=== PATIENT | male | born 1960 | race American Indian/Alaskan Native ===

== ENCOUNTER 2019-05-19 11:42 | Day surgery (SDC) | payer OTHER ==
[~2019-05-19 11:42] MED LIST: NACL 0.9% 1000 ML 1,000 ML IV SCH
[2019-05-19] MEDS ORDERED: XYLOCAINE MPF 2% ONE (12:00)
--- NOTE | 2019-05-19 12:40 | Anesthesia Day of Surgery ---
Anesthesia Day of Surgery - Day of Surgery Patient Examined: Yes Patient H&P Reviewed: Yes Patient is NPO: Yes
--- NOTE | 2019-05-19 12:40 | Anesthesia Consultation ---
Anesthesia Consult and Med Hx Date of service: 05/19/19 - Airway Anesthetic Teeth Evaluation: Partials ROM Head & Neck: Adequate Mental/Hyoid Distance: Adequate Mallampati Class: Class III Intubation Access Assessment: Possibly Difficult - Pulmonary Exam CTA: Yes - Cardiac Exam Cardiac Exam: RRR - Pre-Operative Health Status ASA Pre-Surgery Classification: ASA1 Proposed Anesthetic Plan: MAC - Pulmonary Hx Smoking: Yes (former smoker quit 30 yrs) Hx Respiratory Symptoms: No - Cardiovascular System Hx Hypertension: No Hx Heart Attack/AMI: No Hx Percutaneous Transluminal Coronary Angioplasty (PTCA): No - Central Nervous System Hx Seizures: No CVA: No - Endocrine Hx Renal Disease: No Hx Cirrhosis: No Hx Insulin Dependent Diabetes: No Hx Non-Insulin Dependent Diabetes: No Hx Thyroid Disease: No - Other Systems Hx Obesity: Yes - Additional Comments Anesthesia Medical History Comments: No hx anesthetic complications.
[2019-05-19] MEDS ORDERED: DIPRIVAN 10 MG/ML IV ONE ×2 (13:36)
--- NOTE | 2019-05-19 14:21 | Operative Report ---
Operative Report Operative Report: Date of procedure: 05/19/2019 Procedure: Colonoscopy with multiple hot biopsy polypectomies and polyp abla tions. Attending physician: Richmond Wade MD [employer] Member: Richmond Wade MD Indication: Patient is a 59-year-old male who presents for screening colonoscopy. A colonoscopy serves to evaluate patient so that treatment may be directed based on the findings. Consent: Informed consent was obtained after advising the patient and family regarding nature of this procedure, its indications, potential benefits as well as possible complications including but not limited to bleeding perforation and adverse reaction to medication, infection as well as other cardiopulmonary complications. An informed written and verbal consent was then obtained after due opportunity was provided for questions and answers. Monitoring: Patient was monitored continuously with pulse oximetry and electrocardiographic recordings as well as blood pressure recordings. Vital signs remained stable throughout this procedure with no untoward events. Preoperative assessment: Patient was assessed immediately prior to this procedure for capacity to tolerate monitored anesthesia care and moderate sedation as well as general anesthesia. Patient's ASA classification is 2, Mallampati class is 2, Hyomental distance is 3. Instrument: Olympus video colonoscope Medications: Propofol given intravenously in divided doses. For details please refer to anesthesia records. Description of procedure: Patient was placed in the left lateral decubitus position after achieving sedation, a digital rectal examination was performed following which the colonoscope was introduced into the anal verge and advanced to the cecum which was identified by the cecal valve, the appendiceal orifice, as well as by the cecal strap and direct transillumination. The colonoscope was subsequently withdrawn with careful inspection of all mucosal surfaces. Patient tolerated this procedure well and was subsequently taken to the recovery room. The following findings were noted. Findings: The preparation was fair. Patient has some scattered liquid stool that was easily irrigated. There were a few scattered diverticula seen in the sigmoid colon. Patient had multiple sigmoid colon polyps that were removed by hot biopsy polypectomy. These were all diminutive. The largest polyp measured approximate 6 mm. Most of them measured between 4 and 5 mm. In the sigmoid colon there were 10 of these polyps that were removed by hot biopsy polypectomy and ablated. There were smaller polyps in the sigmoid colon and in the rectum that we ablated. The rest of the colon was normal. On the retroflexed view at the anal verge, patient had internal hemorrhoids. Impression: Multiple diminutive sigmoid colon polyps status post hot biopsy polypectomy and ablation Rectal polyps status post ablation Mild Diverticular disease of the colon. Prominent Internal hemorrhoids. Plan: Follow the pathology report High-fiber diet. Repeat colonoscopy in 5 years if the polyps are adenomatous.
--- NOTE | 2019-05-19 14:22 | Discharge Summary ---
Short Stay Discharge Plan Activity: advance as tolerated Weight Bearing Status: Weight Bear as Tolerated Diet: regular Additional Instructions: Post Sedation D/C Instructions When you return home you may resume your regular diet unless otherwise directed. Go directly home from the hospital and rest quietly. You may resume normal activities tomorrow. Do NOT drive, return to work, operate any machinery or make any important personal or business decisions today. Do NOT drink any alcohol or take nerve or sleeping drugs. They add to the effects of the medicine still present in your body. Follow up with: GUCCI CARY MD [Primary Care Provider] - 7 Days
[2019-05-19 14:55] VITALS: BP 118/83
== END 2019-05-19 11:43 | disposition home or self-care (01) ==
LOC: GIO 11:42
PROVIDERS: ATTEND Internal Medicine Gastroenterology
DX: Z12.11 Encounter for screening for malignant neoplasm of colon (principal); D12.4 Benign neoplasm of descending colon; K57.30 Diverticulosis of large intestine without perforation or abscess without bleeding; E66.9 Obesity, unspecified; Z91.013 Allergy to seafood; Z91.041 Radiographic dye allergy status; Z68.34 Body mass index [BMI] 34.0-34.9, adult
CPT/HCPCS: 45384; 45388; 88305; J2704; J7030